=== PATIENT | female | born 1985 | race Caucasian/White ===

== ENCOUNTER 2018-10-07 10:44 | Day surgery (SDC) | payer OTHER ==
[2018-10-06 11:58] VITALS: BMI 29.7
[~2018-10-07 10:44] MED LIST: IBUPROFEN 400 MG TABLET (FP) PO ONE
[2018-10-07] MEDS ORDERED: oxyCODONE HCL 5 MG TABLET PO PRN (12:23)
[2018-10-07] MEDS ORDERED: IBUPROFEN 400 MG TABLET (FP) PO PRN (12:23)
[2018-10-07] MEDS ORDERED: ACETAMINOPHEN 325 MG TABLET (FP) PO PRN (12:23)
[2018-10-07] MEDS ORDERED: ONDANSETRON 4 MG/2 ML VIAL IVPUSH PRN (12:24)
--- NOTE | 2018-10-07 12:26 | HP ---
Admitting History and Physical - Admission History of Present Illness: 33 yo with known hx/o endometrial polyp desires removal History Source: Patient Limitations to Obtaining History: No Limitations - Past Medical History Cardiovascular: No: HTN Pulmonary: No: Asthma Gastrointestinal: No: GERD ...LMP: 09/28/18 ...: No Heme/Onc: No: Anemia - Past Surgical History Additional Past Surgical History: Breast Biopsy D&C Renal stenting - Smoking History Smoking history: Current every day smoker Have you smoked in the past 12 months: No Aproximately how many cigarettes per day: 10 - Alcohol/Substance Use Hx Alcohol Use: No - Social History History of Recent Travel: No Home Medications - Allergies Allergies/Adverse Reactions: Allergies Allergy/AdvReac Type Severity Reaction Status Date / Time No Known Allergies Allergy Verified 10/06/18 11:52 - Home Medications Home Medications: Ambulatory Orders NK [No Known Home Medication] 10/06/18 Family Disease History - Family Disease History Family History: Denies Review of Systems - Review of Systems Constitutional: reports: No Symptoms Cardiovascular: reports: No Symptoms Respiratory: reports: No Symptoms Gastrointestinal: reports: No Symptoms Genitourinary: reports: No Symptoms Neurological: reports: No Symptoms Psychiatric: reports: No Symptoms Physical Examination Vital Signs: Vital Signs Temperature 98.4 F 10/07/18 11:38 Pulse Rate 71 10/07/18 11:38 Respiratory Rate 16 10/07/18 11:38 Blood Pressure 101/54 L 10/07/18 11:38 O2 Sat by Pulse Oximetry (%) 100 10/07/18 11:38 Constitutional: Yes: Well Nourished, No Distress, Calm Cardiovascular: Yes: Regular Rate and Rhythm Respiratory: Yes: Regular, CTA Bilaterally Gastrointestinal: Yes: Normal Bowel Sounds, Soft Edema: No Neurological: Yes: Alert, Oriented Psychiatric: Yes: Alert, Oriented Assessment/Plan 33 yo with endometrial polyp for removal 1. History reviewed 2. Consents reviewed and signed 3. Preop labs reviewed 4. Will proceed to OR
[2018-10-07] MEDS ORDERED: MIDAZOLAM HCL 2 MG/2 ML SINGLE DOSE VIAL ONE (12:54)
[2018-10-07] MEDS ORDERED: GLYCOPYRROLATE 0.2 MG/1 ML VIAL ONE (13:05)
[2018-10-07] MEDS ORDERED: PROPOFOL 20 ML ONE (13:09)
[2018-10-07] MEDS ORDERED: KETOROLAC TROMETHAMINE 30 MG/1 ML VIAL ONE (13:29)
--- NOTE | 2018-10-07 14:00 | OP ---
Operative Note - Note: Operative Date: 10/07/18 Pre-Operative Diagnosis: endometrial polyp Operation: hysteroscopy, D&C, polypectomy using symphion Findings: three endometrial polyps Post-Operative Diagnosis: Same as Pre-op Surgeon: Meredith Guerrero Anesthesiologist/[employer] TECHNICIAN: Mike Lilly Anesthesia: General Specimens Removed: endometrial curetting Estimated Blood Loss (mls): 2 Drains, Volume Out (mls): 0 (fluid deficit) Operative Report Dictated: Yes
[2018-10-07] MEDS ORDERED: LACTATED RINGERS SOLUTION 1,000 ML IV SCH (14:30)
[2018-10-07 14:45] VITALS: TEMP 98
[2018-10-07] MEDS ORDERED: IBUPROFEN 400 MG TABLET (FP) PO ONE (15:31)
[2018-10-07 15:48] VITALS: BP 100/56; PULSE 75
--- NOTE | 2018-10-08 09:16 | OP ---
DATE OF OPERATION: 10/07/2018 ATTENDING PHYSICIAN: Meredith Guerrero MD PREOPERATIVE DIAGNOSIS: Endometrial polyp. POSTOPERATIVE DIAGNOSIS: Endometrial polyp. SURGERY: Hysteroscopy, dilatation and curettage, polypectomy using Symphion. SURGEON: Meredith Guerrero MD ANESTHESIOLOGIST: Mike Lilly CRNA ANESTHESIA: General. SPECIMENS REMOVED: Endometrial curetting. ESTIMATED BLOOD LOSS: 2. FLUID DEFICIT: 0. INDICATION: Patient is a 33-year-old, 1, para 1 with history of endometrial polyp, desiring surgical intervention. She was counseled regarding risks, benefits, alternatives, and complications of procedure including infection, bleeding, damage to surrounding organs, uterine perforation. She expressed understanding and was brought to the operating room. DESCRIPTION OF PROCEDURE: When anesthesia was found to be adequate, patient was prepped and draped in normal sterile fashion. Placed in the dorsal lithotomy position using Fady stirrups. A weighted speculum was placed in the patient's vagina. Anterior vagina was retracted using a Quarles retractor. Anterior lip of the cervix was grasped using a single-tooth tenaculum. Cervix was found to be dilated and a Symphion hysteroscope was placed. Three endometrial polyps were noted and a thickened endometrium was noted. The Symphion resection device was deployed and removal of the endometrial polyps was done under direct visualization. Gentle, sharp curetting was performed. The Symphion hysteroscope was then replaced and no remaining polyp was noted. All instruments were removed from the patient's vagina. Estimated blood loss was 2 mL. Patient was awoken from anesthesia and brought to recovery room in stable condition. Vira [id number] MTDD
--- NOTE | 2018-10-09 17:11 | PATH ---
Surgical Pathology Report Patient Name: MIKO MIRANDA [facility]. Rec. #: [id number] /Age/Gender: 1985 (Age: 33) / F Account: [id number] Location: [facility] Taken: 10/07/2018 Received: 10/08/2018 Reported: 10/09/2018 Physicians: Meredith Guerrero Specimen(s) Received ENDOMETRIAL CURETTINGS AND POLYP Clinical History Intermenstrual bleeding, irregular Final Diagnosis ENDOMETRIAL CURETTINGS AND POLYP, EXCISION: ENDOMETRIAL POLYP. 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 SEPARATE PROLIFERATIVE ENDOMETRIUM. Electronically Signed Tammie Ugalde M.D. Gross Description Received in formalin labeled "polyp and endometrial curetting" is a 3.5 x 2.6 x 0.4 cm aggregate of ramirez-brown soft tissue fragments. The formalin is filtered and the specimen is entirely submitted in 2 cassettes. /10/08/2018 saudi10/08/2018
== END 2018-10-07 15:50 | disposition home or self-care (01) ==
LOC: JASU-SURG 10:44
PROVIDERS: ATTEND Obstetrics & Gynecology
PROC: 0UJD8ZZ Inspection of Uterus and Cervix, Via Natural or Artificial Opening Endoscopic (ICD-10-PCS; 2018-10-07)
PROC: 0UB97ZX Excision of Uterus, Via Natural or Artificial Opening, Diagnostic (ICD-10-PCS; principal; 2018-10-07 12:30)
PROC: 0UDB7ZX Extraction of Endometrium, Via Natural or Artificial Opening, Diagnostic (ICD-10-PCS; 2018-10-07 12:30)
DX: N84.0 Polyp of corpus uteri (principal)
CPT/HCPCS: 36415; 84703; 86850; 86900; 86901; 88305-TC; 94760

== ENCOUNTER 2021-09-03 12:15 | Inpatient (IN) | payer OTHER ==
[2021-09-03] MEDS ORDERED: OXYTOCIN 30 UNITS in 0.9% NS 30 UNIT/500 ML INFUS.BAG IVPB SCH (15:30)
[2021-09-03] MEDS: DEXTROSE 5%-LACTATED RINGERS 1,000 ML IV SCH (15:30)
[2021-09-03 16:04] VITALS: BMI 42.4
[2021-09-03] MEDS ORDERED: OXYTOCIN 30 UNITS in 0.9% NS 30 UNIT/500 ML INFUS.BAG IVPB ONE (16:04)
[2021-09-03 16:23] LABS: BASO % 0.2 % (0-2.0); EOS % 0.4 % (0-4.5); HEMATOCRIT 33.7 % (32.4-45.2); HEMOGLOBIN 11.6 GM/dL (10.7-15.3); LYMPH % 14.1 % (8-40); MCH 30.2 pg (25.7-33.7); MCHC 34.4 g/dl (32.0-36.0); MEAN CELL VOLUME 87.8 fl (80-96); MEAN PLT VOLUME 8.5 fl (7.5-11.1); MONO % 6.3 % (3.8-10.2); PLATELET COUNT 270 10^3/uL (134-434); RBC 3.84 M/mm3 (3.60-5.2); RDW 15.4 % (11.6-15.6); WHITE BLOOD COUNT 13.4 K/mm3 (4.0-10.0)
[2021-09-03 16:36] LABS: CALCIUM 9.1 mg/dL (8.5-10.1)
[2021-09-03 16:37] LABS: INR 0.93 (0.83-1.09); PROTHROMBIN TIME (PATIENT) 10.7 SEC (9.7-13.0)
[2021-09-03 16:40] LABS: ACTIVATED PTT 23.1 SECONDS (25.2-36.5); CREATININE 0.4 mg/dL (0.55-1.3)
[2021-09-03 20:26] LABS: URINE BARBITURATES NEGATIVE (NEGATIVE)
[2021-09-03 20:27] LABS: OPIATES, URI NEGATIVE (NEGATIVE); PHENCYCLIDINE,URINE NEGATIVE (NEGATIVE)
[2021-09-03 20:28] LABS: COCAINE, UR NEGATIVE (NEGATIVE); METHADONE, UR NEGATIVE (NEGATIVE); URINE AMPHETAMINES NEGATIVE (NEGATIVE); URINE BENZODIAZEPINES NEGATIVE (NEGATIVE)
[2021-09-03] MEDS ORDERED: FENTANYL/BUPIVACAINE/NS/PF - PCEA - 50 ML DISP.SYRIN EP ONE (23:15)
[2021-09-03] MEDS ORDERED: NALOXONE HCL 0.4 MG/ML VIAL IVPUSH PRN (23:20)
[2021-09-03] MEDS ORDERED: MIDAZOLAM HCL 2 MG/2 ML SINGLE DOSE VIAL ONE (23:24)
[2021-09-03] MEDS ORDERED: ELECTROLYTE-148 SOLN 1,000 ML IV SCH (23:30)
[2021-09-03] MEDS ORDERED: FENTANYL/BUPIVACAINE/NS/PF - PCEA - 50 ML DISP.SYRIN EP SCH (23:30)
[2021-09-04] MEDS ORDERED: FENTANYL/BUPIVACAINE/NS/PF - PCEA - 50 ML DISP.SYRIN EP ONE ×2 (03:14→06:21)
[2021-09-04] MEDS ORDERED: ACETAMINOPHEN 325 MG TABLET (FP) ONE (03:59)
[2021-09-04] MEDS ORDERED: ACETAMINOPHEN 325 MG TABLET (FP) PO ONE (04:00)
[2021-09-04] MEDS ORDERED: LIDOCAINE HCL/EPINEPHRINE/PF 20 ML VIAL ONE (07:33)
[2021-09-04] MEDS ORDERED: PROPOFOL 20 ML ONE ×2 (07:39)
[2021-09-04] MEDS ORDERED: SUCCINYLCHOLINE CHLORIDE 200 MG/10 ML SYRINGE ONE (07:39)
[2021-09-04] MEDS ORDERED: ePHEDrine SULFATE 50 MG/1 ML AMPULE ONE ×2 (07:39)
[2021-09-04] MEDS ORDERED: morphine SULFATE/PF 1 MG/2 ML (2cc Syringe - QUVA) ONE ×2 (07:43)
[2021-09-04] MEDS ORDERED: METHYLERGONOVINE MALEATE 0.2 MG/1 ML AMP IM PRN (09:09)
[2021-09-04] MEDS ORDERED: BENZOCAINE 28 GM HEMORRHOIDAL OINTMENT TP PRN (09:09)
[2021-09-04] MEDS ORDERED: ACETAMINOPHEN 325 MG TABLET (FP) PO PRN (09:09)
[2021-09-04] MEDS ORDERED: WITCH HAZEL 50% (TUCKS) 40 PAD/JAR PAD TP PRN (09:09)
[2021-09-04] MEDS ORDERED: BENZOCAINE 20% 57 GM BOTTLE TP PRN (09:09)
[2021-09-04 09:13] LABS: CORD HCO3 22.4 mmHg (20-29); CORD PCO2 54.5 mmHg (30-78); CORD pH 7.232 (7.14-7.44)
[2021-09-04 09:15] LABS: CORD BASE EXCESS -4.6 mmol/L (0-2); CORD PCO2 40.9 mmHg (30-78); CORD pH 7.329 (7.14-7.44)
[2021-09-04] MEDS ORDERED: OXYTOCIN 20 UNITS in 0.9% NS 20 UNIT/1,000 ML INFUS.BAG IV ONE (10:35)
[2021-09-04] MEDS: OXYTOCIN 20 UNITS in 0.9% NS 20 UNIT/1,000 ML INFUS.BAG IV SCH (10:50)
[2021-09-04] MEDS: PRENATAL VITAMINS W/ FOLIC ACID TABLET (FP) PO SCH (11:30)
[2021-09-04] MEDS: ENOXAPARIN NA (PORCINE) 40 MG/0.4 ML DISP.SYRIN SQ SCH (11:30)
[2021-09-04] MEDS: IBUPROFEN 800 MG/8 ML IJ IVPB PRN ×2 (11:36→17:29)
[2021-09-04] MEDS ORDERED: oxyCODONE HCL 5 MG TABLET PO PRN ×2 (21:09)
[2021-09-04] MEDS: IBUPROFEN 600 MG TABLET (FP) PO PRN (23:14)
[2021-09-04] MEDS: SIMETHICONE 80 MG TAB.CHEW (FP) PO PRN (23:14)
[2021-09-05] MEDS: SIMETHICONE 80 MG TAB.CHEW (FP) PO PRN ×2 (08:42→22:22)
[2021-09-05] MEDS: IBUPROFEN 600 MG TABLET (FP) PO PRN ×4 (08:43→22:23)
[2021-09-05] MEDS ORDERED: BISACODYL 10 MG SUPP.RECT RC PRN (09:09)
[2021-09-05] MEDS: OXYTOCIN 20 UNITS in 0.9% NS 20 UNIT/1,000 ML INFUS.BAG IV SCH (10:09)
[2021-09-05] MEDS: PRENATAL VITAMINS W/ FOLIC ACID TABLET (FP) PO SCH (10:32)
[2021-09-05] MEDS: ENOXAPARIN NA (PORCINE) 40 MG/0.4 ML DISP.SYRIN SQ SCH (10:33)
[2021-09-05] MEDS: DEXTROSE 5%-LACTATED RINGERS 1,000 ML IV SCH (14:49)
[2021-09-05 16:52] LABS: HEMATOCRIT 30.4 % (32.4-45.2); MCH 29.4 pg (25.7-33.7); MEAN CELL VOLUME 89.2 fl (80-96); MEAN PLT VOLUME 8.7 fl (7.5-11.1); PLATELET COUNT 230 10^3/uL (134-434); RBC 3.41 M/mm3 (3.60-5.2); RDW 15.6 % (11.6-15.6); WHITE BLOOD COUNT 15.8 K/mm3 (4.0-10.0)
[2021-09-05] MEDS: SENNOSIDES/DOCUSATE COMBO (SENNA PLUS) TABLET (UD) PO PRN (22:22)
[2021-09-06] MEDS: SIMETHICONE 80 MG TAB.CHEW (FP) PO PRN ×4 (03:06→19:43)
[2021-09-06] MEDS: IBUPROFEN 600 MG TABLET (FP) PO PRN ×4 (03:06→19:43)
[2021-09-06] MEDS: PRENATAL VITAMINS W/ FOLIC ACID TABLET (FP) PO SCH (10:20)
[2021-09-06] MEDS: ENOXAPARIN NA (PORCINE) 40 MG/0.4 ML DISP.SYRIN SQ SCH (10:21)
[2021-09-06] MEDS ORDERED: HYDROCORTISONE 1% TOPICAL CREAM 30 GM TUBE TP PRN (20:30)
[2021-09-06] MEDS: SENNOSIDES/DOCUSATE COMBO (SENNA PLUS) TABLET (UD) PO PRN (21:21)
[2021-09-06 21:51] VITALS: TEMP 97.7
[2021-09-07] MEDS: IBUPROFEN 600 MG TABLET (FP) PO PRN ×2 (01:33→07:12)
[2021-09-07] MEDS: SIMETHICONE 80 MG TAB.CHEW (FP) PO PRN ×2 (01:34→07:12)
[2021-09-07 07:18] LABS: BASO % 0.4 % (0-2.0); HEMATOCRIT 31.8 % (32.4-45.2); HEMOGLOBIN 10.6 GM/dL (10.7-15.3); LYMPH % 19.4 % (8-40); MCH 29.7 pg (25.7-33.7); MCHC 33.5 g/dl (32.0-36.0); MEAN CELL VOLUME 88.8 fl (80-96); MEAN PLT VOLUME 8.6 fl (7.5-11.1); MONO % 5.7 % (3.8-10.2); NEUT % 72.5 % (42.8-82.8); PLATELET COUNT 290 10^3/uL (134-434); RBC 3.58 M/mm3 (3.60-5.2); RDW 15.4 % (11.6-15.6); WHITE BLOOD COUNT 9.5 K/mm3 (4.0-10.0)
[2021-09-07] MEDS: PRENATAL VITAMINS W/ FOLIC ACID TABLET (FP) PO SCH (09:19)
[2021-09-07] MEDS: ENOXAPARIN NA (PORCINE) 40 MG/0.4 ML DISP.SYRIN SQ SCH (09:19)
[2021-09-07 09:49] VITALS: BP 141/77; PULSE 85
== END 2021-09-07 11:06 | disposition home or self-care (01) | DRG 540 ==
LOC: JDEL 12:15 → JLDR 13:15 → J3W 09-04 10:45
PROVIDERS: ADMIT Obstetrics & Gynecology; ATTEND Obstetrics & Gynecology
PROC: 10D00Z1 Extraction of Products of Conception, Low, Open Approach (ICD-10-PCS; principal; 2021-09-04)
DX: O62.1 Secondary uterine inertia (principal); O76 Abnormality in fetal heart rate and rhythm complicating labor and delivery; O42.02 Full-term premature rupture of membranes, onset of labor within 24 hours of rupture; Z37.0 Single live birth; Z3A.38 38 weeks gestation of pregnancy
CPT/HCPCS: 36415; 36600; 80048; 80307; 82803; 85025; 85027; 85610; 85730; 86780; 86850; 86900; 86901; C9803; U0003; U0005